=== PATIENT | female | born 1970 | race Caucasian/White ===

== ENCOUNTER → 2018-03-03 | Outpatient (CLI) | payer OTHER ==
--- NOTE | 2018-03-03 13:31 | RADIOLOGY IMAGING REPORT ---
FACILITY: [facility] - [place] PATIENT NAME: GREGORY DOMINIQUE : [id number] MR: [id number] V: [id number] EXAM DATE: [id number] ORDERING PHYSICIAN: SUSANA NORMAN TECHNOLOGIST: Viki Mayfield PROCEDURE:BILATERAL DIGITAL SCREENING MAMMOGRAM WITH CAD ASSISTED INTERPRETATION & 3D TOMOSYNTHESIS COMPARISON:Prior mammograms 02/22/17, 01/28/16, 01/09/15, 01/17/14, 01/12/13, 01/10/13. INDICATIONS:SCREENING FINDINGS: The breasts are almost entirely fatty. The parenchymal pattern has mostly remained stable allowing for difference in mammographic technique & patient positioning. In the upper portion of the Left breast in the middle 1/3 on the Left MLO view there is a focal circumscribed nodule for which Spot compression view is recommended. This is best seen on Tomographic slice 21. This appears to be in the lateral portion of the Left breast on Left CC view best seen on Tomographic slice 28. DIAGNOSTIC CATEGORY 0--INCOMPLETE: NEED ADDITIONAL IMAGING EVALUATION. RECOMMENDATIONS: ADDITIONAL MAMMOGRAPHIC VIEWS REQUIRED: LEFT BREAST. IMPRESSION: BIRADS 0: Incomplete. Additional view of the Left breast recommended as described. Dictated by: Olesya Chapa M.D. on 03/03/2018 at 10:45 Transcribed by: JESSICA on 03/03/2018 at 10:55 Approved by: Olesya Chapa M.D. on 03/03/2018 at 13:30 [facility]
== END ==
LOC: MAMO 02:34
PROVIDERS: ATTEND Obstetrics & Gynecology
DX: Z12.31 Encounter for screening mammogram for malignant neoplasm of breast (principal); R92.8 Other abnormal and inconclusive findings on diagnostic imaging of breast
CPT/HCPCS: 77063; 77067

== ENCOUNTER → 2018-03-29 | Outpatient (CLI) | payer OTHER ==
--- NOTE | 2018-03-29 16:27 | RADIOLOGY IMAGING REPORT ---
FACILITY: [facility] - [place] PATIENT NAME: GREGORY DOMINIQUE : [id number] MR: [id number] V: [id number] EXAM DATE: ORDERING PHYSICIAN: ANDRES MIRELES TECHNOLOGIST: Barrie Silva RDMS, RDDEMARCUS PROCEDURE:US LEFT BREAST COMPARISON:None. INDICATIONS:Unspecified lump in the left breast FINDINGS: The Left breast was imaged in the 12-4 o'clock position. In the 3 o'clock position of the Left breast 9cm from the nipple there is a well circumscribed 8.9 x 6.5 x 4mm ovoid parallel hypoechoic nodule. This may account for the mammographic finding although a 6 month follow-up Left mammogram is recommended as described in Today's mammogram report. DIAGNOSTIC CATEGORY 3--PROBABLY BENIGN FINDING. RECOMMENDATIONS: SIX MONTH FOLLOW-UP DIAGNOSTIC MAMMOGRAM: LEFT BREAST. IMPRESSION: BIRADS 3: Probably benign finding. A 6 month follow-up diagnostic Left mammogram is recommended as described in Today's Left mammogram report. Dictated by: Olesya Chapa M.D. on 03/29/2018 at 14:20 Transcribed by: JESSICA on 03/29/2018 at 14:42 Approved by: Olesya Chapa M.D. on 03/29/2018 at 16:26 [facility]
--- NOTE | 2018-03-29 16:27 | RADIOLOGY IMAGING REPORT ---
FACILITY: [facility] - [place] PATIENT NAME: GREGORY DOMINIQUE : [id number] MR: [id number] V: [id number] EXAM DATE: ORDERING PHYSICIAN: ANDRES MIRELES TECHNOLOGIST: Viki Mayfield PROCEDURE:LEFT DIGITAL DIAGNOSTIC MAMMOGRAM COMPARISON:Prior mammograms 03/03/18, 02/22/17, 01/28/16, 01/09/15, 01/17/14, 01/12/13, 01/10/13, 11/12/11. INDICATIONS:Unspecified lump in the left breast FINDINGS: The patient received Spot compression views in the Left CC & MLO projections. The well circumscribed hypoechoic nodule in the upper outer quadrant of the Left breast is faintly visualized on the Spot compression views although appears less prominent when compared to the prior study. Today's Left breast Ultrasound did demonstrate a well circumscribed parallel ovoid echogenic nodule in the 3 o'clock position of the Left breast 9cm from the nipple. This may account for the mammographic findings however a 6 month follow-up Left mammogram is recommended to document stability unless clinical findings warrant more immediate attention. DIAGNOSTIC CATEGORY 3--PROBABLY BENIGN FINDING. RECOMMENDATIONS: SIX MONTH FOLLOW-UP DIAGNOSTIC MAMMOGRAM: LEFT BREAST. IMPRESSION: BIRADS 3: Probably benign finding. A 6 month follow-up Left diagnostic mammogram is recommended as described above. Dictated by: Olesya Chapa M.D. on 03/29/2018 at 14:19 Transcribed by: JESSICA on 03/29/2018 at 14:37 Approved by: Olesya Chapa M.D. on 03/29/2018 at 16:26 [facility]
== END ==
LOC: MAMO 02:35
PROVIDERS: ATTEND Nurse Practitioner Family
DX: R92.2 Inconclusive mammogram (principal); N63.20 Unspecified lump in the left breast, unspecified quadrant
CPT/HCPCS: 77061; 77065

== ENCOUNTER → 2018-10-18 | Outpatient (CLI) | payer OTHER ==
--- NOTE | 2018-10-18 13:50 | RADIOLOGY IMAGING REPORT ---
FACILITY: [facility] PATIENT NAME: GREGORY DOMINIQUE : [id number] MR: [id number] V: [id number] EXAM DATE: [id number] ORDERING PHYSICIAN: ANDRES MIRELES TECHNOLOGIST: Viki Mayfield PROCEDURE:LEFT DIGITAL MAMMOGRAM DIAGNOSTIC WITH CAD ASSISTED INTERPRETATION & 3D TOMOSYNTHESIS. REASON FOR STUDY: 6 month follow up Left breast possible mass. COMPARISON STUDIES: 03/03/2018 & 03/29/2018. VIEWS OBTAINED: Left breast CC & Left MLO views. BREAST DENSITY: Scattered fibroglandular tissue elements. MAMMOGRAM FINDINGS: There is no suspicious mass, calcification, or architectural distortion. DIAGNOSTIC CATEGORY 1--NEGATIVE. RECOMMENDATIONS: ROUTINE MAMMOGRAM AND CLINICAL EVALUATION IN 1YR. IMPRESSION: BIRADS 1: Negative. This was discussed with the patient by Dr. Wright. Dictated by: Justin Wright M.D. on 10/18/2018 at 10:09 Transcribed by: JESSICA on 10/18/2018 at 11:13 Approved by: Justin Wright M.D. on 10/18/2018 at 13:44 [facility]
== END ==
LOC: MAMO 00:50
PROVIDERS: ATTEND Nurse Practitioner Family
DX: R92.8 Other abnormal and inconclusive findings on diagnostic imaging of breast (principal)
CPT/HCPCS: 77061; 77065